=== PATIENT | male | born 1995 | race Caucasian/White ===

== ENCOUNTER 2020-04-30 23:18 | Emergency (ER) | payer MEDICAID ==
--- NOTE | 2020-05-01 00:52 | EDM.PDOCBH ---
ED HPI GENERAL MEDICAL PROBLEM - General Chief Complaint: Drug or Alcohol Abuse Stated Complaint: [facility] Time Seen by Provider: 05/01/20 00:03 Source of Information: Reports: Patient, EMS History Limitations: Reports: Intoxication - History of Present Illness INITIAL COMMENTS - FREE TEXT/NARRATIVE: This is a 24-year-old male apparently he is been drinking all day and he tends to be a consistent drinker every day his friends thought that he took too much of his medications today and he was kind of fidgeting and jerking so they called the ambulance and when the [employer] supervisor arrived he became somewhat combative and fighting and so the ambulance crew gave him some Haldol 10 mg IM. This seemed to calm him down and then brought him to the ER for evaluation. In the ER he is telling the nurses that he did not overtake his medications and he was able to give each medication and its dosage accurately. Denies any recent illnesses. He just states he has been drinking all day. - Related Data Home Meds: Home Meds Venlafaxine [Effexor] 175 mg PO BEDTIME 04/30/20 [History] hydrOXYzine HCL [hydrOXYzine] 100 mg PO BEDTIME 04/30/20 [History] Past Medical History Psychiatric History: Reports: Anxiety, Schizophrenia Social & Family History - Tobacco Use Smoking Status *Q: Current Every Day Smoker Years of Tobacco use: 5 Packs/Tins Daily: 0.2 - Caffeine Use Caffeine Use: Reports: Coffee, Energy Drinks, Soda, Tea - Alcohol Use Days Per Week of Alcohol Use: 2 Number of Drinks Per Day: 12 Total Drinks Per Week: 24 - Recreational Drug Use Recreational Drug Use: No ED ROS GENERAL - Review of Systems Review Of Systems: Unable To Obtain Reason Not Obtained: The patient is intoxicated ED EXAM, BEHAVIORAL HEALTH - Physical Exam Exam: See Below Exam Limited By: Intoxication General Appearance: Other (Patient is awake, he is able to answer questions, he does not appear to be in acute distress) Eye Exam: Bilateral Eye: Normal Inspection (Pupils were sluggishly reactive) Ears: Normal External Exam Nose: Normal Inspection Throat/Mouth: Normal Inspection, Normal Lips, Normal Voice, No Airway Compr omise, Other (Mild slurred speech) Head: Normocephalic Neck: Supple Respiratory/Chest: No Respiratory Distress, Lungs Clear, Normal Breath Sounds Cardiovascular: Regular Rate, Rhythm, No Murmur GI/Abdominal: Soft Back Exam: Normal Inspection, Full Range of Motion Extremities: Normal Inspection, Normal Range of Motion Neurological: No Motor/Sensory Deficits Psychiatric: Flat Affect Skin Exam: Warm, Dry COURSE, BEHAVIORAL HEALTH COMP - Course Vital Signs: Last Vital Signs Temp 97.6 F 04/30/20 23:23 Pulse 101 H 04/30/20 23:23 Resp 20 04/30/20 23:23 BP 136/70 04/30/20 23:23 Pulse Ox 95 04/30/20 23:23 Orders, Labs, Meds: Laboratory Tests 04/30/20 04/30/20 Range/Units 23:22 23:22 WBC 9.68 H (4.23-9.07) K/mm3 RBC 4.94 (4.63-6.08) M/mm3 Hgb 15.2 (13.7-17.5) gm/dl Hct 45.0 (40.1-51.0) % MCV 91.1 (79.0-92.2) fl MCH 30.8 (25.7-32.2) pg MCHC 33.8 (32.2-35.5) g/dl RDW Std Deviation 41.6 (35.1-43.9) fL Plt Count 267 (163-337) K/mm3 MPV 11.1 (9.4-12.3) fl Neut % (Auto) 49.4 (34.0-67.9) % Lymph % (Auto) 39.5 (21.8-53.1) % Graham % (Auto) 7.2 (5.3-12.2) % Eos % (Auto) 2.4 (0.8-7.0) Baso % (Auto) 0.8 (0.1-1.2) % Neut # (Auto) 4.78 (1.78-5.38) K/mm3 Lymph # (Auto) 3.82 H (1.32-3.57) K/mm3 Graham # (Auto) 0.70 (0.30-0.82) K/mm3 Eos # (Auto) 0.23 (0.04-0.54) K/mm3 Baso # (Auto) 0.08 (0.01-0.08) K/mm3 Sodium 144 (136-145) mEq/L Potassium 3.9 (3.5-5.1) mEq/L Chloride 106 (98-107) mEq/L Carbon Dioxide 20 L (21-32) mEq/L Anion Gap 21.9 H (5-15) BUN 22 H (7-18) mg/dL Creatinine 1.4 H (0.7-1.3) mg/dL Est Cr Clr Drug Dosing 88.15 mL/min Estimated GFR (MDRD) > 60 (>60) mL/min BUN/Creatinine Ratio 15.7 (14-18) Glucose 87 (74-106) mg/dL Calcium 8.9 (8.5-10.1) mg/dL Total Bilirubin 0.2 (0.2-1.0) mg/dL AST 39 H (15-37) U/L ALT 68 H (16-63) U/L Alkaline Phosphatase 96 (46-116) U/L Total Protein 7.9 (6.4-8.2) g/dl Albumin 4.5 (3.4-5.0) g/dl Globulin 3.4 gm/dL Albumin/Globulin Ratio 1.3 (1-2) Ethyl Alcohol 0.23 (0.00) gm% Discharge vs Psych Eval/Treatment:: 05/01/20 04:11 The patient just woke up, he is feeling fine, he is talking normally, he can remember his mother's phone number. Once we can get hold of someone we will send him home. 05/01/20 06:13 The patient has been sleeping peacefully this entire time. We will attempt to get him up and find a ride for him to get home. Departure - Departure Time of Disposition: 06:58 Disposition: Home, Self-Care 01 Condition: Fair Clinical Impression: Alcohol ingestion Acute alcohol intoxication Qualifiers: Complication of substance-induced condition: uncomplicated Qualified Code(s): F10.920 - Alcohol use, unspecified with intoxication, uncomplicated - Discharge Information *PRESCRIPTION DRUG MONITORING PROGRAM REVIEWED*: Not Applicable *COPY OF PRESCRIPTION DRUG MONITORING REPORT IN PATIENT CARMEL: Not Applicable Instructions: Alcohol Intoxication, [id number] Referrals: PCP,None [Primary Care Provider] - Forms: ED Department Discharge Additional Instructions: Please go home and sleep more today and no alcohol for 24 hours, follow-up with your family doctor as needed and return to the ER as needed Sepsis Event Note (ED) - Evaluation Sepsis Screening Result: No Definite Risk
== END 2020-05-01 09:18 | disposition home or self-care (01) ==
LOC: JD.ED 23:18
DX: F10.120 Alcohol abuse with intoxication, uncomplicated (principal); F17.210 Nicotine dependence, cigarettes, uncomplicated; Y90.7 Blood alcohol level of 200-239 mg/100 ml
CPT/HCPCS: 36415; 80053; 80307; 85025; 99282; 99284